=== PATIENT | female | born 1945 | race Caucasian/White ===

== ENCOUNTER → 2017-06-19 | Outpatient (CLI) | payer MEDICARE, OTHER ==
[~2017-06-19] MED LIST: ESTROGEN; SERT25 PO
[2017-06-19 15:01] LABS: Source, Urine Clean Catch
[2017-06-19 16:06] LABS: Appearance, Urine Turbid (Clear); Bilirubin, Urine Neg (Neg); Blood, Urine 1+ (Neg); Color, Urine Yellow (P-Yellow); Glucose Qualitative, Urine Neg (Neg); Ketones, Urine Neg (Neg); Leukocyte Esterase, Urine Neg (Neg); Nitrite, Urine Neg (Neg); Protein, Urine Neg (Neg); Specific Gravity, Urine 1.025 (1.003-1.022); Urobilinogen, Urine NORM (Normal)
[2017-06-19 16:08] LABS: Amorphous Heavy (0-Heavy); Bacteria Few /hpf; Red Blood Cells, Urine 0-2 /hpf (0-2); Squamous Epithelial Cells Rare /hpf (Few); White Blood Cells, Urine 0-2 /hpf (0-5)
== END | disposition home or self-care (01) ==
LOC: LAB 13:20
PROVIDERS: Nurse Practitioner Family
DX: N39.0 Urinary tract infection, site not specified (principal)
CPT/HCPCS: 81001

== ENCOUNTER → 2020-07-04 | Outpatient (CLI) | payer MEDICARE | END | disposition home or self-care (01) | LOC: LAB SHORT 10:00 → LAB 10:00 → LAB FUT 04-26 12:00 | PROVIDERS: Physician Assistant | DX: D35.2 Benign neoplasm of pituitary gland (principal) | CPT/HCPCS: 81050; 82530 ==

== ENCOUNTER → 2021-01-24 | Outpatient (CLI) | payer MEDICARE | END | disposition home or self-care (01) | LOC: LAB SHORT 07:53 | DX: C44.622 Squamous cell carcinoma of skin of right upper limb, including shoulder (principal) | CPT/HCPCS: 88305 ==

== ENCOUNTER → 2021-04-06 | Outpatient (CLI) | payer MEDICARE | LOC: LAB 12:03 → LAB SHORT 12:03 | DX: C44.622 Squamous cell carcinoma of skin of right upper limb, including shoulder (principal) | CPT/HCPCS: 88305 ==

== ENCOUNTER → 2021-10-16 | Outpatient (CLI) | payer MEDICARE | END | disposition home or self-care (01) | LOC: PLD 15:04 → LAB SHORT 15:04 | DX: D17.24 Benign lipomatous neoplasm of skin and subcutaneous tissue of left leg (principal) | CPT/HCPCS: 88305 ==

== ENCOUNTER → 2022-11-21 | Outpatient (CLI) | payer MEDICARE | LOC: LAB SHORT 08:57 → LAB 08:57 | DX: D48.5 Neoplasm of uncertain behavior of skin (principal) | CPT/HCPCS: 88305; 88312 ==

== ENCOUNTER 2024-03-20 11:03 | Inpatient (IN) | payer MEDICARE ==
[~2024-03-20] VITALS: Ht 160 cm; Wt 68.0 kg
[~2024-03-20 11:03] MED LIST changes: +CLIMARA1 EACH TOP; +HYDR1TAB94 PO; +OLMESARTAN-HCT1 EAC5 PO; +OMEPRAZOLE DR 20 MG; +ONDA4ODT MM
[2024-03-20] MEDS ORDERED: Lactated Ringer's 1,000 ML IV ONE ×2 (11:37→14:34)
[2024-03-20] MEDS ORDERED: NS 50 ML IV ONE (11:46)
[2024-03-20] MEDS ORDERED: CeFAZolin Sodium 2,000 MG VIAL ONE (11:46)
[2024-03-20] MEDS ORDERED: propofoL 20 ML IV ONE (12:20)
[2024-03-20] MEDS ORDERED: Midazolam HCl 1MG / ML 2ML Vial ONE (12:20)
--- NOTE | 2024-03-20 12:45 | NUR ---
03/20/24 1245 Carlitos Dejesus, BLOCK TIMEOUT 1237 BLOCK STARTED 1239 BLOCK FINISHED 1246
[2024-03-20] MEDS ORDERED: Ondansetron HCl 2 MG / ML 2ML Vial ONE (12:55)
[2024-03-20] MEDS ORDERED: Dexamethasone Sod Phos 10 MG/ML 1ML VIAL ONE (12:55)
[2024-03-20] MEDS ORDERED: FentaNYL Citrate 50 MCG/ML 2 ML Injection ONE (13:01)
--- NOTE | 2024-03-20 13:11 | NUR ---
03/20/24 1311 Fannie Cagle RECEIVED REPORT FROM [facility].K[facility], STATED PT HAD REDDENED AREA TO FOOT, IT WAS NOTED AFTER PREP WAS PERFORMED
[2024-03-20] MEDS ORDERED: Bupivacaine 0.5% W/EPI 1:200000 SDV 30ML INJ ONE (13:53)
[2024-03-20] MEDS ORDERED: FLU VACC TS2024-25(6MOS UP)/PF 45 MCG/0.5 ML SYRINGE IM SCH (15:30)
[2024-03-20] MEDS ORDERED: Ondansetron HCl 2 MG / ML 2ML Vial IV PRN (15:35)
[2024-03-20] MEDS ORDERED: HYDROcodone 5-APAP 325 TAB PO PRN (15:35)
[2024-03-20] MEDS ORDERED: FentaNYL Citrate 50 MCG/ML 2 ML Injection IV PRN (16:05)
[2024-03-20] MEDS ORDERED: OxyCODONE 5 mg/Acetamin 325 mg TABLET PO PRN (16:10)
[2024-03-20] MEDS ORDERED: Vancomycin HCL 1,750 MG in NS 500 ML IV ONE (16:15)
--- NOTE | 2024-03-20 16:46 | NUR ---
03/20/24 1646 Shwetha Cavanaugh PT PLEASANT, CALM AND COOPERATIVE RESTING IN BED. PT'S IS A BEDSIDE. PT DENIES ANY PAIN, NO C/O NAUSEA. PT ABLE TO TOLERATE SNACK, 2 CHEESE STICKS, AND COFFEE JUST FINE. [facility] OPF R ANKLE REVISION--TO REMOVE HARDWARE. PT EDUCATION PROVIDED REGARDING TRANSFER STATUS, PT IS NON-WEIGHT BEARING TO R LEG. PT HAS A 18G IV TO HER L HAND, RUNNING LACTATED RINGERS BY GRAVITY. DR. ROWLAND FOUND A ABSCESS IN ANKLE WITH A LOT OF "JUNK" IN IT. PT WAS TRANSFERED TO ROOM 216. PT HAS NKDA. VSS, PT ON RA OXYGEN SAT WAS 92-93%. LUNGS ARE CTA. PT A&O x4. NO PAIN MEDICATIONS GIVEN TO PT SHE WAS COMFORTABLE. REPORT WAS GIVEN TO NURSE CORBIN. PT DISCHARGED AT 1618. ALL QUESTIONS WERE ANSWERED/CONCERNS ADDRESSED.
[2024-03-20 17:04] VITALS: BP 110/66
[2024-03-20 18:02] LABS: BASOPHILS ABSOLUTE AUTO 0.02 K/mm3 (0.00-0.23); BASOPHILS PERCENT AUTO 0 % (0-2); EOSINOPHILS ABSOLUTE AUTO 0.01 K/mm3 (0.00-0.68); EOSINOPHILS PERCENT AUTO 0 % (0-6); Hemoglobin 9.1 g/dL (11.5-16.0); IMMATURE GRAN ABSOLUTE AUTO 0.04 K/mm3 (0.00-0.10); IMMATURE GRAN PERCENT AUTO 0 % (0-1); LYMPHOCYTES ABSOLUTE AUTO 0.63 K/mm3 (0.84-5.20); LYMPHOCYTES PERCENT AUTO 7 % (21-46); MONOCYTES ABSOLUTE AUTO 0.26 K/mm3 (0.16-1.47); MONOCYTES PERCENT AUTO 3 % (4-13); Mean Corpuscular HGB 32.5 pg (26.0-34.0); Mean Corpuscular HGB Conc 32.5 g/dL (31.5-36.5); Mean Corpuscular Volume 100 fL (80-100); Mean Platelet Volume 9.2 fL (9.1-12.4); NEUTROPHILS ABSOLUTE AUTO 8.46 K/mm3 (1.96-9.15); NEUTROPHILS PERCENT AUTO 90 % (41-73); Platelet Count 419 K/mm3 (150-400); RDW Standard Deviation 47.5 fL (35.1-46.3); White Blood Cell Count 9.42 K/mm3 (4.00-11.30)
[2024-03-20 18:23] LABS: C-REACTIVE PROTEIN, EXT RANGE 10.9 mg/dL (0.000-0.300)
[2024-03-20 18:24] LABS: Bun/Creatinine Ratio 21.1 (12.0-20.0); Calcium, Blood 8.2 mg/dL (8.5-10.1); Creatinine, Blood 0.81 mg/dL (0.40-1.00); Potassium, Blood 4.1 mmol/L (3.5-5.5)
[2024-03-20] MEDS ORDERED: CeFAZolin Sodium 2,000 MG in NS 100 ML IV SCH (18:30)
--- NOTE | 2024-03-20 18:35 | NUR ---
ARRIVAL/SHIFT SUMMARY PT ARRIVED FROM [facility] AND TRANSFERRED TO HER NEW BED, A/OX4, VSS, TOLERATING PO, IV ABX STARTED, PROVIDED AT BEDSIDE TO SEE HER FOR ADMISSION, PLAN FOR PICC LINE TO BE PLACED TOMORROW. CALL LIGHT IN REACH.
[2024-03-20 19:20] VITALS: BP 125/62
[2024-03-20] MEDS ORDERED: Docusate Sodium 100 MG Cap PO SCH (21:00)
[2024-03-20] MEDS ORDERED: Sennosides 8.6 MG Tab PO SCH (21:00)
[2024-03-21] MEDS ORDERED: Heparin Sodium,Porcine 5,000 UNIT/0.5 ML SDV SC SCH
--- NOTE | 2024-03-21 00:40 | NUR ---
PTS NURSE NOTED LIGHT BLEEDING THROUGH ANKLE DRESSING TO LISA WRAP.PT WITH HEPARIN ORDERS. I CALLED DR CUMMINGS AND ADVISED OF ABOVE. HELD MIDNOC DOSE OF HEPARIN AND TO START WITH AM DOSE 03/21/24.
[2024-03-21 03:58] VITALS: BP 117/72
--- NOTE | 2024-03-21 04:12 | NUR ---
SHIFT SUMMARY NICOLAS WAS ALERT AND FULLY ORIENTED ON ASSESMENT. PT R FOOT CASTED/BANDAGED, DRESSING W/ MODERATE S/S DRAINAGE, DRESSINGS NOT SATURATED. PT BLOCK IS TAKING A LONG TIME TO WEAR OFF, PT IS GRADUALLY GAINING SENSATION DISTALLY, BUT DENIES SENSATION TO TOES. CIRCULATION VERIFIED WITH REFRIGERATION SYSTEM INSTALLER. PT HAS NO COMPLAINTS OF PAIN TONIGHT, AND IS ABLE TO STAND/PIV WITH 2P ASSIST TO USE BSC, ABLE TO PRODUCE POST OP VOID. NO ACUTE EVENTS TONIGHT.
[2024-03-21 04:38] LABS: BASOPHILS ABSOLUTE AUTO 0.02 K/mm3 (0.00-0.23); BASOPHILS PERCENT AUTO 0 % (0-2); EOSINOPHILS ABSOLUTE AUTO 0.01 K/mm3 (0.00-0.68); EOSINOPHILS PERCENT AUTO 0 % (0-6); Hematocrit 26.1 % (33.0-51.0); Hemoglobin 8.4 g/dL (11.5-16.0); IMMATURE GRAN ABSOLUTE AUTO 0.08 K/mm3 (0.00-0.10); IMMATURE GRAN PERCENT AUTO 1 % (0-1); LYMPHOCYTES ABSOLUTE AUTO 1.49 K/mm3 (0.84-5.20); LYMPHOCYTES PERCENT AUTO 11 % (21-46); MONOCYTES ABSOLUTE AUTO 0.93 K/mm3 (0.16-1.47); MONOCYTES PERCENT AUTO 7 % (4-13); Mean Corpuscular HGB 32.6 pg (26.0-34.0); Mean Corpuscular HGB Conc 32.2 g/dL (31.5-36.5); Mean Corpuscular Volume 101 fL (80-100); Mean Platelet Volume 9.4 fL (9.1-12.4); NEUTROPHILS PERCENT AUTO 81 % (41-73); Platelet Count 406 K/mm3 (150-400); RDW Coefficient Variation 12.9 % (11.7-14.2); RDW Standard Deviation 47.6 fL (35.1-46.3); Red Blood Cell Count 2.58 M/mm3 (3.80-5.20); White Blood Cell Count 13.13 K/mm3 (4.00-11.30)
[2024-03-21 04:59] LABS: Albumin, Blood 2.4 g/dL (3.4-5.0); Albumin/Globulin Ratio 0.6 (0.8-1.8); Bilirubin, Total 0.3 mg/dL (0.1-1.0); Bun/Creatinine Ratio 25.3 (12.0-20.0); Calcium, Blood 8.6 mg/dL (8.5-10.1); Creatinine, Blood 0.67 mg/dL (0.40-1.00); Globulin, Blood 4.2 g/dL (2.2-4.0); Potassium, Blood 3.9 mmol/L (3.5-5.5); Total Protein, Blood 6.6 g/dL (6.4-8.2)
[2024-03-21 07:02] VITALS: BP 120/57
[2024-03-21] MEDS ORDERED: Enoxaparin 40 MG/0.4 ML SYR SC SCH (09:00)
[2024-03-21] MEDS ORDERED: NS 250 ML IV PRN (12:45)
[2024-03-21 15:01] VITALS: BP 141/66
--- NOTE | 2024-03-21 15:53 | NUR ---
PT GOT OOB WITHOUT ASSISTANCE THIS RN HEARD A NOISE AND WENT TO CHECK ON THE PT. PT WAS FOUND LEANING AGAINST THE WALL, SHE STATED SHE WAS ATTEMPTING TO GET TO HER WHEELCHAIR TO CHECK FOR HER PURSE. PT WAS ASSISTED BACK TO BED. IT IS UNCLEAR IF PT PUT WEIGHT ON HER RLE. PT REPOSITIONED IN BED. CALL LIGHT PLACED WITHIN REACH AND PT EDUCATED TO CALL FOR ASSISTANCE. BED ALARM IN PLACE. PT EDUCATED THAT SHE SHOULD NOT BE OOB WITHOUT A STAFF MEMBER FOR HER SAFETY. PHONE PLACED WITHIN REACH. PT APPEARED IMPULSIVE DURING THIS INCIDENT BUT DID NOT APPEAR CONFUSED. PT USED HER CALL LIGHT AFTER THIS INCIDENT TO REQUEST PAPERS WITH FAMILY CONTACT INFORMATION BE PLACED WITHIN REACH, DEMONSTRATING THAT PT KNOWS AND REMEMBERS TO USE HER CALL LIGHT BUT HAD CHOSEN NOT TO WHEN SHE GOT OOB WITHOUT ASSISTANCE. INTEGRATED CIRCUIT FABRICATOR AND SURTASS ANALYST NOTIFIED THAT BED ALARM WAS TURNED ON FOR PT SAFETY. THIS RN WAS PRESENT IN THE ROOM APPROXIMATELY 15 MINUTES PRIOR TO THIS INCIDENT TO ASSIST PT TO LOOK FOR HER PURSE, THIS RN HAD SHOWN THE PT THAT IT WAS NOT IN HER W/C. PT LOOKED THROUGH BELONGING BAGS. THIS RN CHECKED CUPBOARDS AND DRAWERS THAT WERE OUT OF PT'S REACH. PT WAS ENCOURAGED TO CALL FAMILY MEMBERS TO ASK IF THEY HAD HER PURSE. WHEN THIS RN LEFT THE ROOM PT WAS RESTING IN HER BED WITH BLE ELEVATED, CALL LIGHT WITHIN REACH, PHONE AND FAMILY CONTACT INFORMATION WITHIN REACH.
--- NOTE | 2024-03-21 16:20 | NUR ---
SHIFT SUMMARY PT IS POD#1 FROM I&D WITH DR. ROWLAND. PAIN HAS BEEN MANAGED WITH NORCO THIS SHIFT. PT HAS BEEN ALERT/ORIENTED X4 BUT IS IMPULSIVE AT TIMES (SEE NOT REGARDING OOB WITHOUT ASSISTANCE). BED ALARM IN PLACE FOR PT SAFETY. PT TOLERATING PO. VSS.
[2024-03-21] MEDS ORDERED: Vancomycin HCL 1,250 MG in NS 250 ML IV SCH (17:00)
[2024-03-21 19:13] VITALS: BP 116/69
--- NOTE | 2024-03-21 19:55 | NUR ---
REPORT GIVEN TO VERNA SEVERINO TO ASSUME CARE OF PT AT THIS TIME.
[2024-03-22] VITALS (8 sets, daily range): BP systolic 109–142; BP diastolic 60–78
--- NOTE | 2024-03-22 04:22 | NUR ---
SHIFT SUMMARY NICOLAS WAS ALERT AND FULLY ORIENTED ON ASSESMENT. PT PAIN MANAGED MODERATELY WELL. PT UP TO BSC STAND/PIV W/ ASSIST OF 1 STAFF. LAB REPORTED POSITIVE BLOOD CULTURES, DIRECTOR OF PRIMARY CARE CONTACTED HOSPITALIST, NO CHANGES MADE. NO FURTHER DRAINAGE NOTED FROM DRESSING TO R FOOT. SENSATION/ CIRCULATION INTACT. ASIDE FROM INCREASED SENSATION & PAIN TO FOOT, PT CONDITION UNCHANGED FROM PREVIOUS NIGHT. NO ACUTE EVENTS.
[2024-03-22 05:33] LABS: BASOPHILS ABSOLUTE AUTO 0.05 K/mm3 (0.00-0.23); BASOPHILS PERCENT AUTO 1 % (0-2); EOSINOPHILS ABSOLUTE AUTO 0.43 K/mm3 (0.00-0.68); EOSINOPHILS PERCENT AUTO 6 % (0-6); Hemoglobin 6.7 g/dL (11.5-16.0); IMMATURE GRAN ABSOLUTE AUTO 0.02 K/mm3 (0.00-0.10); IMMATURE GRAN PERCENT AUTO 0 % (0-1); LYMPHOCYTES ABSOLUTE AUTO 2.26 K/mm3 (0.84-5.20); LYMPHOCYTES PERCENT AUTO 29 % (21-46); MONOCYTES ABSOLUTE AUTO 0.66 K/mm3 (0.16-1.47); MONOCYTES PERCENT AUTO 8 % (4-13); Mean Corpuscular HGB 32.4 pg (26.0-34.0); Mean Corpuscular HGB Conc 31.9 g/dL (31.5-36.5); Mean Corpuscular Volume 101 fL (80-100); NEUTROPHILS ABSOLUTE AUTO 4.46 K/mm3 (1.96-9.15); NEUTROPHILS PERCENT AUTO 57 % (41-73); Platelet Count 391 K/mm3 (150-400); RDW Coefficient Variation 13.2 % (11.7-14.2); RDW Standard Deviation 48.6 fL (35.1-46.3); Red Blood Cell Count 2.07 M/mm3 (3.80-5.20); White Blood Cell Count 7.88 K/mm3 (4.00-11.30)
[2024-03-22 05:53] LABS: Bun/Creatinine Ratio 16.4 (12.0-20.0); Calcium, Blood 7.9 mg/dL (8.5-10.1); Creatinine, Blood 0.67 mg/dL (0.40-1.00); Potassium, Blood 3.2 mmol/L (3.5-5.5)
--- NOTE | 2024-03-22 06:04 | NUR ---
PT CONT WITH LOW GRADE TEMPS.I CALLED DR CUMMINGS TO ADVISE AND LABS ORDERED.
[2024-03-22] MEDS ORDERED: NS 500 ML IV SCH (06:25)
--- NOTE | 2024-03-22 06:30 | NUR ---
PTS H/H WITH SIGNIFICANT DROP TO 11/14 THIS AM. LABS CALLED TO DR CUMMINGS REEGARDING THIS DROP.PT HAD LIGHT BLEEDING VISIBLE ON DRESSING AT ANKLE SATURDAY AND MIDNOC DOSE WAS HELD OF HEPARIN. AT THIS TIME, DR CHANGED HEPARIN TO Q 12H INSTEAD OF Q 8H AND ORDERED TRANSFUSION OF [address] TO ROOM FOR SIGNING OF BLOOD PERMIT.
[2024-03-22] MEDS ORDERED: Potassium Chloride 20 MEQ TabCR PO ONE (08:00)
[2024-03-22] MEDS ORDERED: Heparin Sodium,Porcine 5,000 UNIT/0.5 ML SDV SC SCH (09:00)
--- NOTE | 2024-03-22 09:27 | NUR ---
DR. ROWLAND ROUNDED AND DRESSING WAS CHANGED.
--- NOTE | 2024-03-22 09:50 | NUR ---
DR. ROWLAND ROUNDED AND CHANGED RLE DRESSING.
[2024-03-22 14:11] LABS: Stool Occult Blood Guaiac 1 Neg (Neg)
--- NOTE | 2024-03-22 15:32 | NUR ---
1 UNIT PRBCs COMPLETED AT APPROXIMATELY 1520. PT TOLERATED WELL. VSS BEFORE, DURING AND AFTER TRANSFUSION. LUNG SOUND REMAIN CLEAR.
--- NOTE | 2024-03-22 19:53 | NUR ---
SHIFT SUMMARY PT IS POD#2. PAIN MANAGED WITH PO PAIN MEDICATION. PT IS A 1 ASSIST WHEN OOB. PT HAD 1 UNIT PRBC AND TOLERATED WELL. PT USUALLY USES CALL LIGHT APPROPRIATELY BUT IS IMPULSIVE AND FORGETFUL AT TIMES. BED ALARM IN PLACE FOR SAFETY.
[2024-03-22] MEDS ORDERED: OMEP20ER PO (20:17)
[2024-03-22] MEDS ORDERED: ALEN70 PO (20:19)
[2024-03-22] MEDS ORDERED: Premarin0.3 MG PO (20:19)
[2024-03-23 06:20] LABS: BASOPHILS ABSOLUTE AUTO 0.05 K/mm3 (0.00-0.23); BASOPHILS PERCENT AUTO 1 % (0-2); EOSINOPHILS ABSOLUTE AUTO 0.46 K/mm3 (0.00-0.68); EOSINOPHILS PERCENT AUTO 7 % (0-6); Hemoglobin 8.5 g/dL (11.5-16.0); IMMATURE GRAN ABSOLUTE AUTO 0.03 K/mm3 (0.00-0.10); IMMATURE GRAN PERCENT AUTO 1 % (0-1); LYMPHOCYTES ABSOLUTE AUTO 1.52 K/mm3 (0.84-5.20); LYMPHOCYTES PERCENT AUTO 24 % (21-46); MONOCYTES ABSOLUTE AUTO 0.54 K/mm3 (0.16-1.47); MONOCYTES PERCENT AUTO 8 % (4-13); Mean Corpuscular HGB 31.5 pg (26.0-34.0); Mean Corpuscular HGB Conc 31.5 g/dL (31.5-36.5); Mean Corpuscular Volume 100 fL (80-100); Mean Platelet Volume 8.9 fL (9.1-12.4); NEUTROPHILS PERCENT AUTO 59 % (41-73); Platelet Count 365 K/mm3 (150-400); RDW Coefficient Variation 14.9 % (11.7-14.2); RDW Standard Deviation 54.4 fL (35.1-46.3)
[2024-03-23 06:39] LABS: Calcium, Blood 8.3 mg/dL (8.5-10.1); Creatinine, Blood 0.62 mg/dL (0.40-1.00); Potassium, Blood 3.8 mmol/L (3.5-5.5)
[2024-03-23 07:08] VITALS: BP 135/69
[2024-03-23] MEDS ORDERED: EstradioL 0.5 MG Tablet PO SCH (09:00)
[2024-03-23] MEDS ORDERED: Sertraline HCl 50 MG Tab PO SCH (09:00)
[2024-03-23] MEDS ORDERED: Losartan/HCTZ 50-12.5 TAB PO SCH (09:00)
[2024-03-23 14:07] VITALS: BP 126/76
[2024-03-23] MEDS ORDERED: ZOLOFT10013 PO (14:21)
[2024-03-23] MEDS ORDERED: ESTRADIOL0.5 MG PO (14:27)
[2024-03-23 17:46] LABS: Vancomycin, Trough 11.5 ug/mL (5.0-10.0)
--- NOTE | 2024-03-23 17:58 | NUR ---
SHIFT SUMMARY PT IN GOOD SPIRITS TODAY. SHE WORKED WITH PHYSICAL THERAPY AND WAS ABLE TO AMBULATE WHILE NOT BEARING WEIGHT ON R FOOT/LEG. LUCIA PO INTAKE WELL. CONT TO GET ABX. CARE COORDINATION ARRANGING DISCHARGE PLAN FOR ABX OUTPATIENT. PT TO CONSIDER SNF, HOME HEALTH, OR INFUSION CENTER.
[2024-03-23 20:00] VITALS: BP 134/72
--- NOTE | 2024-03-24 04:05 | NUR ---
SHIFT SUMMARY NOC. PT POD 4 FOR I&D AFTER PREVIOUS ORIF OF RIGHT ANKLE. PT TOLERATING PO INTAKE AND VOIDING APPROPRIATELY. PT STAND PIVOT WITH GAIT BELT AND FWW TO BSC AND NON WT BEARING ON RLE. SPLINT ON RLE C/D/I, CAP REFILL LESS THAN 3 SECONDS, AND SENSATION INTACT. PT CALLS APPROPRIATELY, BED ALARM SET FOR HX OF IMPULSIVITY THIS HOSPITAL STAY. BED IN LOWEST POSITION, CALL LIGHT IN REACH.
[2024-03-24 05:20] VITALS: BP 147/70
[2024-03-24 05:50] LABS: BASOPHILS ABSOLUTE AUTO 0.05 K/mm3 (0.00-0.23); BASOPHILS PERCENT AUTO 1 % (0-2); EOSINOPHILS ABSOLUTE AUTO 0.55 K/mm3 (0.00-0.68); EOSINOPHILS PERCENT AUTO 8 % (0-6); Hematocrit 26.9 % (33.0-51.0); Hemoglobin 8.9 g/dL (11.5-16.0); IMMATURE GRAN ABSOLUTE AUTO 0.03 K/mm3 (0.00-0.10); IMMATURE GRAN PERCENT AUTO 0 % (0-1); LYMPHOCYTES PERCENT AUTO 27 % (21-46); MONOCYTES ABSOLUTE AUTO 0.51 K/mm3 (0.16-1.47); MONOCYTES PERCENT AUTO 8 % (4-13); Mean Corpuscular HGB 32.8 pg (26.0-34.0); Mean Corpuscular HGB Conc 33.1 g/dL (31.5-36.5); Mean Corpuscular Volume 99 fL (80-100); Mean Platelet Volume 8.9 fL (9.1-12.4); NEUTROPHILS ABSOLUTE AUTO 3.74 K/mm3 (1.96-9.15); NEUTROPHILS PERCENT AUTO 56 % (41-73); Platelet Count 379 K/mm3 (150-400); RDW Coefficient Variation 14.2 % (11.7-14.2); Red Blood Cell Count 2.71 M/mm3 (3.80-5.20); White Blood Cell Count 6.68 K/mm3 (4.00-11.30)
[2024-03-24 06:12] LABS: Bun/Creatinine Ratio 13.4 (12.0-20.0); Calcium, Blood 8.4 mg/dL (8.5-10.1); Creatinine, Blood 0.67 mg/dL (0.40-1.00); Potassium, Blood 3.8 mmol/L (3.5-5.5)
[2024-03-24 07:17] VITALS: BP 154/85
[2024-03-24] MEDS ORDERED: Sertraline HCl 100 MG Tab PO SCH (09:00)
[2024-03-24 13:59] VITALS: BP 141/70
[2024-03-24 14:34] VITALS: BP 106/68
--- NOTE | 2024-03-24 16:40 | NUR ---
SHIFT SUMMARY PT DID WELL TODAY. PT WORKED WITH PHYSICAL THERAPY AND OCCUPATIONAL THERAPY TODAY. WAS UP MULTIPLE TIMES [place] [facility] WHILE MAINTIAINING NWB ON R LEG. CARE COORDINATION TEAM WORKED WITH PT ON DISCHARGE WITH HOME HEALTH POSSIBLY TOMORROW ON HOME ABX. PT HAD PRN PAIN MEDICATION X1 FOR SHOOTING PAINS IN HER R FOOT. CMS INTACT IN R FOOT. BANDAGE/SPLINT C/D/I. PT HAS CALL LIGHT IN REACH AND SIDE RAILS UP.
[2024-03-24] MEDS ORDERED: DAPTOmycin 550 MG in NS 50 ML IV SCH (18:00)
[2024-03-24 19:09] VITALS: BP 127/64
[2024-03-25 03:51] VITALS: BP 153/75
[2024-03-25 04:57] LABS: BASOPHILS ABSOLUTE AUTO 0.04 K/mm3 (0.00-0.23); BASOPHILS PERCENT AUTO 1 % (0-2); EOSINOPHILS ABSOLUTE AUTO 0.55 K/mm3 (0.00-0.68); EOSINOPHILS PERCENT AUTO 6 % (0-6); Hematocrit 27.4 % (33.0-51.0); Hemoglobin 8.7 g/dL (11.5-16.0); IMMATURE GRAN ABSOLUTE AUTO 0.03 K/mm3 (0.00-0.10); IMMATURE GRAN PERCENT AUTO 0 % (0-1); LYMPHOCYTES ABSOLUTE AUTO 2.14 K/mm3 (0.84-5.20); LYMPHOCYTES PERCENT AUTO 25 % (21-46); MONOCYTES ABSOLUTE AUTO 0.72 K/mm3 (0.16-1.47); MONOCYTES PERCENT AUTO 8 % (4-13); Mean Corpuscular HGB 31.5 pg (26.0-34.0); Mean Corpuscular HGB Conc 31.8 g/dL (31.5-36.5); Mean Corpuscular Volume 99 fL (80-100); Mean Platelet Volume 8.7 fL (9.1-12.4); NEUTROPHILS ABSOLUTE AUTO 5.05 K/mm3 (1.96-9.15); NEUTROPHILS PERCENT AUTO 59 % (41-73); Platelet Count 372 K/mm3 (150-400); RDW Coefficient Variation 13.7 % (11.7-14.2); RDW Standard Deviation 49.5 fL (35.1-46.3); Red Blood Cell Count 2.76 M/mm3 (3.80-5.20); White Blood Cell Count 8.53 K/mm3 (4.00-11.30)
--- NOTE | 2024-03-25 05:20 | NUR ---
SHIFT SUMMARY- NICOLAS HAD A GOOD NIGHT, UP TO BSC WITH FWW AND STAND PIVOT ON LEFT LEG. DOING GOOD WITH HER TRANSFERS. DENIES STOOL SOFTNERS, SHE IS EXPERIENCING LOOSE STOOLS. PICC LINE FLUSHED IN BOTH LUMENS, THOUGH BOTH LUMENS ARE HARD TO FLUSH AND GIVE SLUGGISH BLOOD RETURN. LEAD ESTHETICIAN NOTIFIED, AND WILL ALERT ONCOMING TEAM PRIOR TO PATIENT DISCHARGE. PT DID EXPERIENCE LEG SPASMS IN RLE, STATED THAT PAIN MEDS AND ICE HELPED WITH THIS. NO OTHER NEEDS AT THIS TIME.
[2024-03-25 05:30] LABS: Bun/Creatinine Ratio 13.3 (12.0-20.0); Calcium, Blood 8.8 mg/dL (8.5-10.1); Creatinine, Blood 0.68 mg/dL (0.40-1.00); Potassium, Blood 3.5 mmol/L (3.5-5.5)
[2024-03-25 08:19] VITALS: BP 144/80
--- NOTE | 2024-03-25 09:30 | NUR ---
NURSING SURG DAYSHIFT: Assumed care of pt at approx 0700. A/O, very pleasant, cooperative w/care. Denies any pain/discomfort at rest. Answers questions appropriately and engaged in care. Skin fragile, no breakdown noted, R foot w/sky dressing CKI r/t recent repair. No tele in place, HRR, no c/o CP/pressure, no noted edema. L/S cta t/o, O2 sat upper 90's on RA, denies dyspnea, no noted cough. Abd SNT, BT+, voiding w/o difficulty per pt. PIV s/l. Pt denies any current questions/needs, anticipating discharge home. Seen by podiatry this a.m., cleared for dc, awaiting rounding from PMD. Update provided to daughter by this RN and plan of care discussed w/family by care management. No s/s of acute distress at this time, call light in reach, cont to monitor for changes.
--- NOTE | 2024-03-25 10:44 | NUR ---
Upon receiving a referral for spiritual care, I visited the patient. She tells me about her medical problems and the clinical plan of care moving forward. She talks about her 3 grown children there locations (none live locally). She explains about the great support that she receives from the [facility] that she attends ([facility]) and that she met her "boyfriend" there (who is also a great help to her). She shares about how her jeanne has helped her through the of her (4 yrs ago), and how she leans into that jeanne in challenging circumstances like the ones she is experiencing now.I provided therapeutic listening, gentle tariff counsel, grief support, and prayer. Patient reposnded well and showed signs of being encouraged in her jeanne. I will continue to remain available to patient and family.
[2024-03-25 15:33] VITALS: BP 146/84
--- NOTE | 2024-03-25 17:23 | NUR ---
NURSING SURGICAL DAYSHIFT SUMMARY: Pt has done very well t/o the shift. Discharge delayed d/t awaiting availability of home IV abx delivery, poss plan for discharge home w/HH tomorrow. Worked w/P.T. earlier in day, tolerated well. S/O at bedside, discussed plan of care, addressed questions. Pt has been in good spirits t/o the day and has been cooperative w/care. Remained NWB on R foot, OOB to BSC w/stand pivot and FWW w/o difficulty. Currently sitting up in bed having supper and talking on phone, denies any current needs, call light in reach. Cont to monitor until rpt is given to NOC RN.
--- NOTE | 2024-03-25 17:42 | NUR ---
NURSING SURG DAYSHIFT SUMMARY: Pt has done well t/o the shift. Good spirits in the a.m. though less motivated to participate in ADL's this afternoon. Worked w/therapy and though fearful w/use of LLE, remained engaged and followed commands. Poor PO intake though s/o reports that pt "eats like a bird" at home, encouraging oral intake and dietary supplements. Bed alarm has been in use t/o the shift as pt can tend to dangle legs off of edge of bed w/o calling for staff assistance. Pt currently sitting up in bed having supper, using techniques taught by ST to reduce risk of aspiration. No s/s of acute distress at this time, call light in reach, cont to monitor until rpt is given to NOC RN.
[2024-03-25 19:30] VITALS: BP 149/83
[2024-03-26 04:43] VITALS: BP 141/79
[2024-03-26 04:57] LABS: BASOPHILS ABSOLUTE AUTO 0.04 K/mm3 (0.00-0.23); BASOPHILS PERCENT AUTO 0 % (0-2); EOSINOPHILS ABSOLUTE AUTO 0.47 K/mm3 (0.00-0.68); EOSINOPHILS PERCENT AUTO 5 % (0-6); Hematocrit 27.3 % (33.0-51.0); Hemoglobin 8.9 g/dL (11.5-16.0); IMMATURE GRAN ABSOLUTE AUTO 0.03 K/mm3 (0.00-0.10); IMMATURE GRAN PERCENT AUTO 0 % (0-1); LYMPHOCYTES ABSOLUTE AUTO 2.21 K/mm3 (0.84-5.20); LYMPHOCYTES PERCENT AUTO 24 % (21-46); MONOCYTES ABSOLUTE AUTO 0.86 K/mm3 (0.16-1.47); MONOCYTES PERCENT AUTO 9 % (4-13); Mean Corpuscular HGB 32.1 pg (26.0-34.0); Mean Corpuscular HGB Conc 32.6 g/dL (31.5-36.5); Mean Corpuscular Volume 99 fL (80-100); Mean Platelet Volume 8.9 fL (9.1-12.4); NEUTROPHILS ABSOLUTE AUTO 5.54 K/mm3 (1.96-9.15); NEUTROPHILS PERCENT AUTO 61 % (41-73); Platelet Count 379 K/mm3 (150-400); RDW Coefficient Variation 13.7 % (11.7-14.2); RDW Standard Deviation 48.8 fL (35.1-46.3); Red Blood Cell Count 2.77 M/mm3 (3.80-5.20); White Blood Cell Count 9.15 K/mm3 (4.00-11.30)
[2024-03-26 05:24] LABS: Bun/Creatinine Ratio 11.7 (12.0-20.0); Calcium, Blood 9.1 mg/dL (8.5-10.1); Creatinine, Blood 0.68 mg/dL (0.40-1.00); Potassium, Blood 3.4 mmol/L (3.5-5.5)
--- NOTE | 2024-03-26 05:56 | NUR ---
SUMMARY ASSUMED CARE OF PT AT 2200.PT REPORTED SHE WAS FEELING BETTER THAN SHE HAS,AND SHE REPORTED SHE IS HOPING FOR DISCHARGE TODAY.
[2024-03-26 07:09] VITALS: BP 129/67
--- NOTE | 2024-03-26 08:35 | NUR ---
AM ASSESSMENT: Pt dozing in bed. Wakes to verbal stimulus. LS clear, HR reg. BT positive. Pulses palp. R foot/ankle wrapped in soft sky wrap. Good cap refil of toes noted. Denies pain. PICC to R upper arm, flushes with some difficulty but blood return noted. Call light in reach. Will continue to monitor.
[2024-03-26] MEDS ORDERED: Potassium Chloride 20 MEQ TabCR PO ONE (11:10)
[2024-03-26] MEDS ORDERED: DAPTOmycin 550 MG in NS 50 ML IV SCH (12:00)
[2024-03-26] MEDS ORDERED: DAPTOMYCIN500 MG/50 (12:18)
--- NOTE | 2024-03-26 12:30 | NUR ---
PICC line dressing changed. Shows 7 cm out, at incertion 6 cm out. Flushes and draws. [place] flushes with some difficulty but does flush and draw.
[2024-03-26 14:03] VITALS: BP 117/64
--- NOTE | 2024-03-26 14:17 | NUR ---
discharged reviewed dc paperwork with pt and s.o./verbalized understanding. Confirmed set up, Jason, critical care unit nurse, provided pamphlet with [facility] phone number on it for pt. pt left unit in w[place] w/possessions and dc paperwork accompnanied by s.o.
== END 2024-03-26 14:16 | disposition home health service (06) | DRG 493 ==
LOC: ORSCSDS 11:03 → SURS 12:29 → ORSCSDS 12:30 → SURS 12:30
PROVIDERS: Internal Medicine; Podiatrist Foot & Ankle Surgery; ADMIT Internal Medicine
PROC: 0QSG04Z Reposition Right Tibia with Internal Fixation Device, Open Approach (ICD-10-PCS; principal; 2024-03-20 12:30)
DX: T84.223A Displacement of internal fixation device of bones of foot and toes, initial encounter (principal); D62 Acute posthemorrhagic anemia; L02.415 Cutaneous abscess of right lower limb; R78.81 Bacteremia; T84.629A Infection and inflammatory reaction due to internal fixation device of unspecified bone of leg, initial encounter; S82.841D Displaced bimalleolar fracture of right lower leg, subsequent encounter for closed fracture with routine healing; I10 Essential (primary) hypertension; F32.A Depression, unspecified; G25.81 Restless legs syndrome; Z96.652 Presence of left artificial knee joint; Z79.899 Other long term (current) drug therapy; Z90.710 Acquired absence of both cervix and uterus; E78.5 Hyperlipidemia, unspecified; K21.9 Gastro-esophageal reflux disease without esophagitis; B95.62 Methicillin resistant Staphylococcus aureus infection as the cause of diseases classified elsewhere
CPT/HCPCS: 36415; 36430; 36573; 71045; 80048; 80053; 80202; 82272; 82550; 85025; 85651; 86140; 86850; 86900; 86901; 86923; 87040; 87070; 87075; 87077; 87186; 87205; 93306; 94760; 97110; 97116; 97161; 97165; 97530; 97535; A9270; C1713; C1751; C1776; J0690; J0878; J1100; J1644; J2250; J2405; J2704; J3010; J3370; J7040; J7050; P9016

== ENCOUNTER → 2024-04-02 | Outpatient (CLI) | payer MEDICARE ==
[~2024-04-02] MED LIST changes: +ALEN70 PO; +DAPTOMYCIN500 MG/50; +ESTRADIOL0.5 MG PO; +OMEP20ER PO; +Premarin0.3 MG PO; +ZOLOFT10013 PO
[2024-04-02 15:57] LABS: BASOPHILS ABSOLUTE AUTO 0.08 K/mm3 (0.00-0.23); BASOPHILS PERCENT AUTO 1 % (0-2); EOSINOPHILS ABSOLUTE AUTO 0.52 K/mm3 (0.00-0.68); EOSINOPHILS PERCENT AUTO 7 % (0-6); Hematocrit 29.7 % (33.0-51.0); Hemoglobin 9.5 g/dL (11.5-16.0); IMMATURE GRAN ABSOLUTE AUTO 0.03 K/mm3 (0.00-0.10); IMMATURE GRAN PERCENT AUTO 0 % (0-1); LYMPHOCYTES ABSOLUTE AUTO 2.23 K/mm3 (0.84-5.20); LYMPHOCYTES PERCENT AUTO 28 % (21-46); MONOCYTES ABSOLUTE AUTO 0.51 K/mm3 (0.16-1.47); MONOCYTES PERCENT AUTO 6 % (4-13); Mean Corpuscular HGB 32.4 pg (26.0-34.0); Mean Corpuscular Volume 101 fL (80-100); Mean Platelet Volume 9.4 fL (9.1-12.4); NEUTROPHILS ABSOLUTE AUTO 4.57 K/mm3 (1.96-9.15); NEUTROPHILS PERCENT AUTO 58 % (41-73); Platelet Count 503 K/mm3 (150-400); RDW Coefficient Variation 14.5 % (11.7-14.2); RDW Standard Deviation 53.1 fL (35.1-46.3); Red Blood Cell Count 2.93 M/mm3 (3.80-5.20); White Blood Cell Count 7.94 K/mm3 (4.00-11.30)
[2024-04-02 16:31] LABS: C-REACTIVE PROTEIN, EXT RANGE 1.13 mg/dL (0.000-0.300)
[2024-04-02 16:37] LABS: Bun/Creatinine Ratio 23.6 (12.0-20.0); Calcium, Blood 8.6 mg/dL (8.5-10.1); Creatinine, Blood 0.98 mg/dL (0.40-1.00); Potassium, Blood 3.8 mmol/L (3.5-5.5)
== END ==
LOC: LAB 14:59 → LAB SHORT 14:59
PROVIDERS: Physician Assistant
DX: L02.415 Cutaneous abscess of right lower limb (principal)
CPT/HCPCS: 80048; 85025; 86140

== ENCOUNTER → 2024-04-15 | Outpatient (CLI) | payer MEDICARE ==
[2024-04-15 16:40] LABS: BASOPHILS PERCENT AUTO 1 % (0-2); EOSINOPHILS ABSOLUTE AUTO 1.12 K/mm3 (0.00-0.68); EOSINOPHILS PERCENT AUTO 11 % (0-6); Hemoglobin 9.8 g/dL (11.5-16.0); IMMATURE GRAN ABSOLUTE AUTO 0.02 K/mm3 (0.00-0.10); IMMATURE GRAN PERCENT AUTO 0 % (0-1); LYMPHOCYTES ABSOLUTE AUTO 2.66 K/mm3 (0.84-5.20); LYMPHOCYTES PERCENT AUTO 26 % (21-46); MONOCYTES ABSOLUTE AUTO 0.69 K/mm3 (0.16-1.47); MONOCYTES PERCENT AUTO 7 % (4-13); Mean Corpuscular HGB 33.7 pg (26.0-34.0); Mean Corpuscular HGB Conc 32.7 g/dL (31.5-36.5); Mean Corpuscular Volume 103 fL (80-100); Mean Platelet Volume 9.6 fL (9.1-12.4); NEUTROPHILS ABSOLUTE AUTO 5.75 K/mm3 (1.96-9.15); NEUTROPHILS PERCENT AUTO 56 % (41-73); Platelet Count 382 K/mm3 (150-400); RDW Coefficient Variation 15.5 % (11.7-14.2); RDW Standard Deviation 57.6 fL (35.1-46.3); Red Blood Cell Count 2.91 M/mm3 (3.80-5.20); White Blood Cell Count 10.34 K/mm3 (4.00-11.30)
[2024-04-15 17:00] LABS: Bun/Creatinine Ratio 19.1 (12.0-20.0); Calcium, Blood 8.7 mg/dL (8.5-10.1); Creatinine, Blood 0.73 mg/dL (0.40-1.00); Potassium, Blood 3.2 mmol/L (3.5-5.5)
== END ==
LOC: LAB 11:45 → LAB SHORT 11:45
PROVIDERS: Physician Assistant
DX: T84.69XA Infection and inflammatory reaction due to internal fixation device of other site, initial encounter (principal); T84.196D Other mechanical complication of internal fixation device of bone of right lower leg, subsequent encounter; B95.62 Methicillin resistant Staphylococcus aureus infection as the cause of diseases classified elsewhere
CPT/HCPCS: 80048; 82550; 85025

== ENCOUNTER → 2024-04-22 | Outpatient (CLI) | payer MEDICARE ==
[2024-04-22 16:09] LABS: BASOPHILS ABSOLUTE AUTO 0.08 K/mm3 (0.00-0.23); BASOPHILS PERCENT AUTO 1 % (0-2); EOSINOPHILS ABSOLUTE AUTO 0.98 K/mm3 (0.00-0.68); EOSINOPHILS PERCENT AUTO 11 % (0-6); Hemoglobin 9.2 g/dL (11.5-16.0); IMMATURE GRAN ABSOLUTE AUTO 0.03 K/mm3 (0.00-0.10); IMMATURE GRAN PERCENT AUTO 0 % (0-1); LYMPHOCYTES ABSOLUTE AUTO 2.88 K/mm3 (0.84-5.20); LYMPHOCYTES PERCENT AUTO 31 % (21-46); MONOCYTES ABSOLUTE AUTO 0.58 K/mm3 (0.16-1.47); MONOCYTES PERCENT AUTO 6 % (4-13); Mean Corpuscular HGB 34.8 pg (26.0-34.0); Mean Corpuscular HGB Conc 32.9 g/dL (31.5-36.5); Mean Corpuscular Volume 106 fL (80-100); Mean Platelet Volume 9.8 fL (9.1-12.4); NEUTROPHILS ABSOLUTE AUTO 4.67 K/mm3 (1.96-9.15); NEUTROPHILS PERCENT AUTO 51 % (41-73); Platelet Count 345 K/mm3 (150-400); RDW Coefficient Variation 15.6 % (11.7-14.2); RDW Standard Deviation 60.8 fL (35.1-46.3); Red Blood Cell Count 2.64 M/mm3 (3.80-5.20); White Blood Cell Count 9.22 K/mm3 (4.00-11.30)
[2024-04-22 16:42] LABS: Bun/Creatinine Ratio 32.1 (12.0-20.0); Calcium, Blood 8.7 mg/dL (8.5-10.1); Creatinine, Blood 0.72 mg/dL (0.40-1.00); Potassium, Blood 3.5 mmol/L (3.5-5.5)
== END | disposition home or self-care (01) ==
LOC: LAB 14:57 → LAB SHORT 14:57
PROVIDERS: Physician Assistant
DX: T84.69XA Infection and inflammatory reaction due to internal fixation device of other site, initial encounter (principal); T84.196A Other mechanical complication of internal fixation device of bone of right lower leg, initial encounter; B95.62 Methicillin resistant Staphylococcus aureus infection as the cause of diseases classified elsewhere
CPT/HCPCS: 80048; 82550; 85025

== ENCOUNTER → 2024-04-29 | Outpatient (CLI) | payer MEDICARE ==
[2024-04-29 13:23] LABS: BASOPHILS ABSOLUTE AUTO 0.08 K/mm3 (0.00-0.23); BASOPHILS PERCENT AUTO 1 % (0-2); EOSINOPHILS ABSOLUTE AUTO 0.89 K/mm3 (0.00-0.68); EOSINOPHILS PERCENT AUTO 12 % (0-6); Hematocrit 27.8 % (33.0-51.0); Hemoglobin 9.1 g/dL (11.5-16.0); IMMATURE GRAN ABSOLUTE AUTO 0.02 K/mm3 (0.00-0.10); IMMATURE GRAN PERCENT AUTO 0 % (0-1); LYMPHOCYTES PERCENT AUTO 30 % (21-46); MONOCYTES ABSOLUTE AUTO 0.52 K/mm3 (0.16-1.47); MONOCYTES PERCENT AUTO 7 % (4-13); Mean Corpuscular HGB Conc 32.7 g/dL (31.5-36.5); Mean Corpuscular Volume 107 fL (80-100); Mean Platelet Volume 9.6 fL (9.1-12.4); NEUTROPHILS ABSOLUTE AUTO 3.61 K/mm3 (1.96-9.15); NEUTROPHILS PERCENT AUTO 49 % (41-73); Platelet Count 272 K/mm3 (150-400); RDW Coefficient Variation 15.5 % (11.7-14.2); RDW Standard Deviation 60.2 fL (35.1-46.3); White Blood Cell Count 7.32 K/mm3 (4.00-11.30)
[2024-04-29 13:37] LABS: Albumin, Blood 3.5 g/dL (3.4-5.0); Albumin/Globulin Ratio 0.9 (0.8-1.8); Bilirubin, Total 0.8 mg/dL (0.1-1.0); Calcium, Blood 8.9 mg/dL (8.5-10.1); Creatinine, Blood 0.89 mg/dL (0.40-1.00); Globulin, Blood 3.9 g/dL (2.2-4.0); Potassium, Blood 3.5 mmol/L (3.5-5.5); Total Protein, Blood 7.4 g/dL (6.4-8.2)
== END | disposition home or self-care (01) ==
LOC: LAB SHORT 12:15 → LAB 12:15
PROVIDERS: Physician Assistant
DX: L02.415 Cutaneous abscess of right lower limb (principal); T84.196D Other mechanical complication of internal fixation device of bone of right lower leg, subsequent encounter; T84.69XD Infection and inflammatory reaction due to internal fixation device of other site, subsequent encounter; B95.62 Methicillin resistant Staphylococcus aureus infection as the cause of diseases classified elsewhere
CPT/HCPCS: 80053; 82550; 85025

== ENCOUNTER → 2024-05-04 | Outpatient (CLI) | payer MEDICARE ==
[2024-05-04 13:54] LABS: BASOPHILS ABSOLUTE AUTO 0.06 K/mm3 (0.00-0.23); BASOPHILS PERCENT AUTO 1 % (0-2); EOSINOPHILS ABSOLUTE AUTO 0.63 K/mm3 (0.00-0.68); EOSINOPHILS PERCENT AUTO 7 % (0-6); Hemoglobin 9.9 g/dL (11.5-16.0); IMMATURE GRAN ABSOLUTE AUTO 0.03 K/mm3 (0.00-0.10); IMMATURE GRAN PERCENT AUTO 0 % (0-1); LYMPHOCYTES ABSOLUTE AUTO 3.01 K/mm3 (0.84-5.20); LYMPHOCYTES PERCENT AUTO 34 % (21-46); MONOCYTES ABSOLUTE AUTO 0.57 K/mm3 (0.16-1.47); MONOCYTES PERCENT AUTO 7 % (4-13); Mean Corpuscular HGB 35.2 pg (26.0-34.0); Mean Corpuscular Volume 107 fL (80-100); Mean Platelet Volume 9.5 fL (9.1-12.4); NEUTROPHILS ABSOLUTE AUTO 4.49 K/mm3 (1.96-9.15); NEUTROPHILS PERCENT AUTO 51 % (41-73); Platelet Count 370 K/mm3 (150-400); Red Blood Cell Count 2.81 M/mm3 (3.80-5.20); White Blood Cell Count 8.79 K/mm3 (4.00-11.30)
[2024-05-04 14:09] LABS: Bun/Creatinine Ratio 18.9 (12.0-20.0); Creatinine, Blood 0.9 mg/dL (0.40-1.00); Potassium, Blood 3.5 mmol/L (3.5-5.5)
== END | disposition home or self-care (01) ==
LOC: LAB SHORT 13:00 → LAB 13:00
PROVIDERS: Physician Assistant
DX: T84.69XA Infection and inflammatory reaction due to internal fixation device of other site, initial encounter (principal); B95.62 Methicillin resistant Staphylococcus aureus infection as the cause of diseases classified elsewhere; T84.196A Other mechanical complication of internal fixation device of bone of right lower leg, initial encounter
CPT/HCPCS: 80048; 82550; 85025

== ENCOUNTER 2025-02-09 11:21 | Day surgery (SDC) | payer OTHER ==
[~2025-02-09] VITALS: Ht 160 cm; Wt 72.5 kg
[~2025-02-09 11:21] MED LIST changes: +Aspir 8181 MG PO; +Balanced Salt Epinephrine Irrigation Solution 500 mL IR SCH; +EYE HEALTH ARE1 EACH PO; +Moxifloxacin HCL 0.5 MG/0.1 ML 0.4MLSYR RIGHTEYE SCH; +Ondansetron 4 MG SoluTab MM PRN; +PHENYLEPHRINE\\TROPICAMIDE\\TETRACAINE OPHTHALMIC DILATING SOLN RIGHTEYE PRN; +Povidone-Iodine 450 DROP/30 ML Solution ONE; +Povidone-Iodine 450 DROP/30 ML Solution RIGHTEYE SCH; +Tetracaine HCl/Pf 0.5% Opth Soln 4 ml ONE; +diazePAM 5 MG,diazePAM 2 MG PO SCH
--- NOTE | 2025-02-09 11:53 | NUR ---
02/09/25 Nathan3 Page Kirk CALL LIGHT WITHIN REACH. PT ON CONTINOUS PULSE OXIMETER FOR CLOSE MONITORING.
--- NOTE | 2025-02-09 12:31 | NUR ---
02/09/25 1231 Bernadette Heredia HR:68 BP:151/85 RR:18 (DOES HAVE SLIGHT WHEEZE WHEN BREATHING--STATES THAT IS NORMAL FOR HER) SPO2:100% ON 10L BLOW BY O2
[2025-02-09 12:42] VITALS: BP 154/75
--- NOTE | 2025-02-09 12:45 | NUR ---
02/09/25 1245 Soo Victor INSTRUCTED PARTNER TO PULL CAR AROUND
== END 2025-02-09 13:03 | disposition home or self-care (01) ==
LOC: ORSCSDS 11:21
PROVIDERS: Student in an Organized Health Care Education/Training Program
PROC: 08RJ3JZ Replacement of Right Lens with Synthetic Substitute, Percutaneous Approach (ICD-10-PCS; principal; 2025-02-09 13:00)
DX: H25.813 Combined forms of age-related cataract, bilateral (principal)
CPT/HCPCS: A9270; V2632

== ENCOUNTER 2025-02-23 11:13 | Day surgery (SDC) | payer OTHER ==
[~2025-02-23] VITALS: Ht 160 cm; Wt 72.3 kg
[~2025-02-23 11:13] MED LIST changes: +Moxifloxacin HCL 0.5 MG/0.1 ML 0.4MLSYR LEFTEYE SCH; -Moxifloxacin HCL 0.5 MG/0.1 ML 0.4MLSYR RIGHTEYE SCH; +PHENYLEPHRINE\\TROPICAMIDE\\TETRACAINE OPHTHALMIC DILATING SOLN LEFTEYE PRN; -PHENYLEPHRINE\\TROPICAMIDE\\TETRACAINE OPHTHALMIC DILATING SOLN RIGHTEYE PRN; +Povidone-Iodine 450 DROP/30 ML Solution LEFTEYE SCH; -Povidone-Iodine 450 DROP/30 ML Solution RIGHTEYE SCH
[2025-02-23] MEDS ORDERED: Tetracaine HCl 0.5% Opth Soln 15 ml LEFTEYE ONE (12:05)
--- NOTE | 2025-02-23 12:13 | NUR ---
02/23/25 1213 Reza Honeycutt N 135/77 100% 10L BLOW BY O2 61 20
[2025-02-23 12:23] VITALS: BP 124/65
== END 2025-02-23 12:39 | disposition home or self-care (01) ==
LOC: ORSCSDS 11:13
PROVIDERS: Student in an Organized Health Care Education/Training Program
PROC: 08RK3JZ Replacement of Left Lens with Synthetic Substitute, Percutaneous Approach (ICD-10-PCS; principal; 2025-02-23 13:00)
DX: H25.812 Combined forms of age-related cataract, left eye (principal); H35.3220 Exudative age-related macular degeneration, left eye, stage unspecified; Z96.1 Presence of intraocular lens; Z79.82 Long term (current) use of aspirin; Z79.899 Other long term (current) drug therapy
CPT/HCPCS: A9270; V2632